=== PATIENT | female | born 1975 | race Caucasian/White ===

== ENCOUNTER 2017-08-07 23:52 | Emergency (ER) | payer OTHER ==
[~2017-08-07] VITALS: Ht 157.5 cm; Wt 74.0 kg
[~2017-08-07 23:52] MED LIST: ARIP5TAB8 PO; GLIP5TAB4 PO; METF500T2 PO
[2017-08-08 00:12] VITALS: BP 103/64
[2017-08-08] MEDS ORDERED: AZITHROMYCIN 250 MG TAB PO ONE (00:40)
[2017-08-08] MEDS ORDERED: cefTRIAXone 250 MG in LIDOCAINE MPF 1% - **ER/OR** 0.9 ML IM ONE (00:40)
[2017-08-08 00:42] LABS: APPEARANCE,URINE CLEAR (CLEAR); BILIRUBIN,URINE NEGATIVE (NEGATIVE); BLOOD, URINE 2+ (NEGATIVE); COLOR,URINE YELLOW (YELLOW); LEUKOCYTE ESTERASE ,URINE NEGATIVE (NEGATIVE); NITRITE, URINE NEGATIVE (NEGATIVE); UGLUCOSE TRACE (NEGATIVE)
[2017-08-08 00:54] LABS: RBC,URINE 11-20 (MOD) /HPF (0-5); WBC,URINE 0-5 (RARE) /HPF (0-5)
[2017-08-08] MEDS ORDERED: metroNIDAZOLE 250 MG TAB PO ONE (01:00)
[2017-08-08 01:31] VITALS: BP 125/75
[2017-08-09 06:19] LABS: HEPATITIS A ANTIBODY IGM Negative (Negative); HEPATITIS B CORE AB TOTAL Negative (Negative); HEPATITIS B SURFACE ANTIBODY Reactive (.); HEPATITIS B SURFACE ANTIGEN Negative (Negative)
[2017-08-10 06:22] LABS: CHLAMYDIA TRACHOMATIS AMP DNA Negative (Negative)
== END 2017-08-08 01:31 | disposition home or self-care (01) ==
LOC: MED 23:52
DX: N76.0 Acute vaginitis (principal); Z88.5 Allergy status to narcotic agent; E11.9 Type 2 diabetes mellitus without complications; Z90.710 Acquired absence of both cervix and uterus
CPT/HCPCS: 36415; 81001; 81025; 86702; 86704; 86706; 86708; 86709; 86803; 87210; 87340; 87491; 96372; 99284; J0696; J2001